=== PATIENT | female | born 1970 | race Caucasian/White ===

== ENCOUNTER 2019-12-31 18:12 | Emergency (ER) | payer OTHER ==
[~2019-12-31] VITALS: Ht 154.9 cm; Wt 83.9 kg
[~2019-12-31 18:12] MED LIST: CLEOCIN HCL300 MG PO; LEVOTHYROXINE0.05 MG PO; NOHOMEMEDICATIONS; NORCO 5-325 TA1 EACH PO; PREDNISONE 10 M10 MG PO; TRIAMCINOLONE A80 GM TOP
[2019-12-31 19:29] VITALS: BP 132/92
== END 2019-12-31 19:30 | disposition home or self-care (01) ==
LOC: M.ERS 18:12
DX: L25.9 Unspecified contact dermatitis, unspecified cause (principal); E03.9 Hypothyroidism, unspecified; F17.210 Nicotine dependence, cigarettes, uncomplicated; Z88.0 Allergy status to penicillin; Z88.8 Allergy status to other drugs, medicaments and biological substances